=== PATIENT | male | born 1965 | race Caucasian/White ===

== ENCOUNTER 2022-08-09 17:39 | Inpatient (IN) | payer SELFPAY ==
[2022-08-09 18:07] LABS: #Eosinphils 0.3 thou/uL (0.0-0.7); #Lymphocytes 2.1 thou/uL (1.20-3.40); #Monocytes 0.8 thou/uL (0.11-0.59); #Neutrophils 4.9 thou/uL (1.40-6.50); %Basophils 0.6 % (0.0-1.0); %Monocytes 9.5 % (0.0-10.0); %Neutrophils 59.9 % (42.0-75.0); Hemoglobin 14.6 g/dL (14.0-18.0); Mean Corpuscular HGB CONC 32.6 g/dL (32.0-36.0); Mean Corpuscular Hemoglobin 30.5 pg (27.0-31.0); Mean Corpuscular Volume 93.7 fL (78.0-98.0); Mean Platelet Volume 6.9 fL (7.4-10.4); Platelet Count 198 thou/uL (130-400); RBC Distribution Width 13.6 % (11.5-14.5); Red Blood Cell (RBC) Count 4.78 mill/uL (4.70-6.10); White Blood Cell (WBC) Count 8.2 thou/uL (4.8-10.8)
[2022-08-09 18:32] LABS: ALT (SGPT) 21 U/L (8-55); AST (SGOT) 20 U/L (5-34); Albumin 4.4 g/dL (3.5-5.0); Alkaline Phosphatase 87 U/L (40-110); Anion Gap 15 mmol/L (10-20); BUN (Urea Nitrogen) 17 mg/dL (8.4-25.7); Calc. Creatinine Clearance 0 mL/min (70-130); Calcium 9.6 mg/dL (7.8-10.44); Carbon Dioxide 24 mmol/L (22-29); Chloride 103 mmol/L (98-107); Estimated GFR 81; Globulin 3.2 g/dL (2.4-3.5); Glucose 96 mg/dL (70-105); Potassium 4.4 mmol/L (3.5-5.1); Protein, Total 7.6 g/dL (6.0-8.3); Sodium 138 mmol/L (136-145)
[2022-08-09 18:51] LABS: CKMB 3.8 ng/mL (0-6.6)
[2022-08-09] MEDS ORDERED: Aspirin 325 MG TAB ONE (20:28)
[2022-08-09 21:59] LABS: Troponin I 0.015 ng/mL (< 0.028)
[2022-08-09 22:50] VITALS: BMI 31.6
[2022-08-10 01:15] LABS: Troponin I Less than 0.010 ng/mL (< 0.028)
[2022-08-10] MEDS ORDERED: Nitroglycerin 0.4 MG TAB (25 Tab Bottle) SL PRN (08:47)
[2022-08-10] MEDS ORDERED: Aspirin 81 mg Enteric Coated Tablet PO SCH (09:00)
[2022-08-10] MEDS: Enoxaparin Sodium 40 MG/0.4 ML SYRINGE SC SCH (09:50)
[2022-08-10] MEDS: Atorvastatin Calcium 40 MG TAB PO SCH (10:34)
[2022-08-10] MEDS: Aspirin Chewable 81 MG TAB PO SCH (10:34)
[2022-08-10] MEDS: Amlodipine 5 MG TAB PO SCH (10:34)
[2022-08-10] MEDS: FLUoxetine HCl 20 MG CAP PO SCH (10:34)
[2022-08-10] MEDS: Benztropine 1 MG TAB PO SCH (14:23)
[2022-08-11 04:58] LABS: Cardiac Risk 7.3 (Less than 4.5)
[2022-08-11] MEDS ORDERED: Regadenoson 0.4 MG/5 ML SYRINGE ONE (08:06)
[2022-08-11] MEDS: Enoxaparin Sodium 40 MG/0.4 ML SYRINGE SC SCH (11:27)
[2022-08-11] MEDS: Aspirin Chewable 81 MG TAB PO SCH (11:28)
[2022-08-11] MEDS: Amlodipine 5 MG TAB PO SCH (11:28)
[2022-08-11] MEDS: FLUoxetine HCl 20 MG CAP PO SCH (11:28)
[2022-08-11] MEDS: Atorvastatin Calcium 40 MG TAB PO SCH (11:28)
[2022-08-11] MEDS: Benztropine 1 MG TAB PO SCH (11:32)
[2022-08-11 16:34] VITALS: BP 147/84; TEMP 97
[2022-08-12] MEDS ORDERED: Lisinopril 5 MG TAB PO SCH (09:00)
== END 2022-08-11 17:00 | disposition home or self-care (01) | DRG 313 ==
LOC: ERS 17:39 → 2SW 21:09 → OBSVTOIN 08-10 15:11
PROVIDERS: ADMIT Student in an Organized Health Care Education/Training Program; ATTEND Student in an Organized Health Care Education/Training Program
DX: R07.9 Chest pain, unspecified (principal); Z20.822 Contact with and (suspected) exposure to COVID-19; F39 Unspecified mood [affective] disorder; E78.5 Hyperlipidemia, unspecified; F17.210 Nicotine dependence, cigarettes, uncomplicated; I11.9 Hypertensive heart disease without heart failure; Z86.16 Personal history of COVID-19; Z82.49 Family history of ischemic heart disease and other diseases of the circulatory system; Z79.899 Other long term (current) drug therapy
CPT/HCPCS: 36415; 71045; 78452; 80053; 80061; 82553; 83880; 84484; 85025; 85379; 93005; 93017; 93306; 93880; 94760; A9500; G0378; J1650; J2785; U0003; U0005

== ENCOUNTER 2023-01-17 08:49 | Emergency (ER) | payer SELFPAY ==
[2023-01-17 10:03] LABS: Hemoglobin 13.8 g/dL (14.0-18.0); Mean Corpuscular Hemoglobin 30.1 pg (27.0-31.0); Mean Corpuscular Volume 94.1 fl (78.0-98.0); Mean Platelet Volume 7.3 fL (7.4-10.4); Platelet Count 179 10x3/uL (130-400); RBC Distribution Width 14.7 % (11.5-14.5); White Blood Cell (WBC) Count 7.2 10x3/uL (4.8-10.8)
[2023-01-17 10:29] LABS: ALT (SGPT) 55 U/L (8-55); AST (SGOT) 43 U/L (5-34); Albumin 4.3 g/dL (3.5-5.0); Alkaline Phosphatase 60 U/L (40-110); Anion Gap 14 mmol/L (10-20); BUN (Urea Nitrogen) 16 mg/dL (8.4-25.7); Bilirubin, Total 0.4 mg/dL (0.2-1.2); Calc. Creatinine Clearance 0 mL/min (70-130); Calcium 9.6 mg/dL (7.8-10.44); Carbon Dioxide 22 mmol/L (22-29); Chloride 106 mmol/L (98-107); Estimated GFR 102; Globulin 2.9 g/dL (2.4-3.5); Glucose 101 mg/dL (70-105); Lipase 40 U/L (8-78); Potassium 4.4 mmol/L (3.5-5.1); Protein, Total 7.2 g/dL (6.0-8.3); Sodium 138 mmol/L (136-145)
[2023-01-17 10:38] LABS: Band 1 % (5-11); Eosinophils 3 % (0-10); Lymphocytes 26 % (21-51); MDiff Complete? YES; Monocytes 9 % (0-10); Neutrophil 60 % (42-75); RBC Morphology Normal; Reactive Lymphocytes 1 % (0-10)
== END 2023-01-17 12:33 | disposition home or self-care (01) ==
LOC: ERS 08:49
DX: R05.9 Cough, unspecified (principal); R06.2 Wheezing; I10 Essential (primary) hypertension; F17.210 Nicotine dependence, cigarettes, uncomplicated; Z79.899 Other long term (current) drug therapy
CPT/HCPCS: 36415; 71045; 80053; 83690; 83880; 84484; 85025; 93005